=== PATIENT | male | born 1990 | race Caucasian/White ===

== ENCOUNTER 2024-01-17 11:31 | Emergency (ER) | payer MEDICAID, SELFPAY ==
[2024-01-17 11:47] VITALS: BP 124/81; PULSE 72; RESP 18; TEMP 36.7; O2SAT 100
--- NOTE | 2024-01-17 12:24 | ED.UPPEXIN ---
HPI - Extremity Injury (Upper) General Chief Complaint: Extremity Injury, Upper Stated Complaint: fish hook in right thumb Time Seen by Provider: 01/17/24 12:13 Source: patient and family Mode of arrival: ambulatory History of Present Illness HPI narrative: FISHHOOK, RIGHT THUMB PRIOR TO ARRIVAL Related Data Allergies Allergy/AdvReac Type Severity Reaction Status Date / Time No Known Allergies Allergy Verified 01/17/24 15:48 Review of Systems Review of Systems: All systems reviewed & are unremarkable except as noted in HPI and below Exam Narrative: GENERAL APPEARANCE: WELL-DEVELOPED, WELL-NOURISHED SKIN: NORMAL COLOR VASCULAR: NORMAL PERIPHERAL PULSES, NORMAL CAPILLARY REFILL. MUSCULOSKELETAL: FISHHOOK RIGHT THUMB NEUROLOGIC: ALERT AND ORIENTED ?3, Course Vital Signs Vital signs: Vital Signs Temperature 36.7 C 01/17/24 11:47 Pulse Rate 72 01/17/24 11:47 Respiratory Rate 18 01/17/24 11:47 Blood Pressure 124/81 01/17/24 11:47 Pulse Oximetry 100 01/17/24 11:47 Temperature 36.7 C 01/17/24 11:47 Pulse Rate 72 01/17/24 11:47 Respiratory Rate 18 01/17/24 11:47 Blood Pressure 124/81 01/17/24 11:47 Pulse Oximetry 100 01/17/24 11:47 Procedures Foreign Body Removal Foreign Body #1: Foreign Body Removal Date: 01/17/24 Foreign Body Removal Time: 19:02 Time Out Performed: yes (10) Site: right and other (RIGHT THUMB) Description of foreign body: fish hook and other Sedation/Analgesia: none Technique: manual removal Confirmed by:: direct visualization Complications: none Post-procedure exam: awake, alert Neurovascular: normal distal pulse Foreign Body Removal Narrative: LOCAL ANY CVAS NG LIDOCAINE 1%, BETADINE, PUSHING THE FISHHOOK THROUGH, SUCCESSFUL PROCEDURE MDM - Extremity Injury (Upper) MDM Narrative Medical decision making narrative: FACIAL QUITE THUMB SUPERFICIAL, REMOVED , PATIENT TOLERATED THE PROCEDURE WELL Critical Care Time Critical Care Time Critical Care Time: No Discharge Plan Discharge Clinical Impression: Fish hook in finger Patient Disposition: Home, Self-Care Condition: Stable Instructions: Antibiotic Form, Puncture Wound (DC) Additional Instructions: Return if symptoms are worsening , call your family physician for appointment, take Tylenol as as needed for aches and pain, continue home medications. Prescriptions: New cephalexin 500 mg capsule 500 mg PO Q6H 7 Days Qty: 28 0RF Follow-up/Referrals: PHYSICIAN,BUSINESS ADMINISTRATION INSTRUCTOR [Primary Care Provider] - Tanvir Rios MD [Physician] - 01/21/24
--- NOTE | 2024-01-17 12:31 | PC.NURSE ---
Pt states tetanus is not UTD
[2024-01-17] MEDS: LIDOCAINE HCL 1% LOCAL INJ 10 ML VIAL 5 ML INFILTRATE (15:49)
== END 2024-01-17 16:05 | disposition home or self-care (01) ==
PROVIDERS: Emergency Provider Emergency Medicine
DX: S60.351A Superficial foreign body of right thumb, initial encounter (principal); W26.8XXA Contact with other sharp object(s), not elsewhere classified, initial encounter
CPT/HCPCS: 99283